=== PATIENT | male | born 1965 | race Two or more races ===

== ENCOUNTER 2018-02-04 12:54 | Emergency (ER) | payer OTHER ==
[~2018-02-04] VITALS: Ht 165.1 cm; Wt 85.7 kg
[2018-02-04 15:35] VITALS: BP 109/71
== END 2018-02-04 15:35 | disposition home or self-care (01) ==
LOC: ED 12:54
DX: M79.662 Pain in left lower leg (principal)
CPT/HCPCS: Q0092

== ENCOUNTER 2018-09-06 19:24 | Emergency (ER) | payer OTHER ==
[~2018-09-06] VITALS: Ht 165.1 cm; Wt 85.3 kg
[2018-09-06 19:47] VITALS: Ht 165.1 cm; Wt 85.3 kg
[2018-09-06 21:45] VITALS: BP 104/59
== END 2018-09-06 21:45 | disposition home or self-care (01) ==
LOC: ED 19:24
DX: S86.911A Strain of unspecified muscle(s) and tendon(s) at lower leg level, right leg, initial encounter (principal); W22.8XXA Striking against or struck by other objects, initial encounter; Y93.89 Activity, other specified; Y92.89 Other specified places as the place of occurrence of the external cause; Y99.8 Other external cause status